=== PATIENT | female | born 1970 | race Caucasian/White ===

== ENCOUNTER 2018-08-12 15:41 | Emergency (ER) | payer OTHER ==
[~2018-08-12] VITALS: Ht 157.5 cm; Wt 73.0 kg
[2018-08-12 20:27] VITALS: BP 173/91
== END 2018-08-12 21:56 | disposition left against medical advice (07) ==
LOC: ER 15:41
DX: Z53.21 Procedure and treatment not carried out due to patient leaving prior to being seen by health care provider (principal)
CPT/HCPCS: 81025